=== PATIENT | male | born 1985 | race Caucasian/White ===

== ENCOUNTER 2021-01-31 11:25 | Outpatient (RCR) | payer MEDICAID, SELFPAY | END 2021-03-12 23:59 | LOC: IMMUN 11:25 | PROVIDERS: Referring Provider Family Medicine; Visit Provider Family Medicine | DX: Z23 Encounter for immunization (principal) | CPT/HCPCS: 0001A; 0002A; 91300 ==

== ENCOUNTER 2024-08-21 18:26 | Emergency (ER) | payer OTHER, SELFPAY ==
[2024-08-21 18:27] VITALS: BP 135/99; PULSE 67; RESP 18; TEMP 36.4; O2SAT 96; BMI 23.8
[2024-08-21 18:29] VITALS: BP 135/99; PULSE 67; RESP 18; TEMP 36.4; O2SAT 96
--- NOTE | 2024-08-21 19:00 | CT_ITS ---
INDICATION: right neck swelling EXAMINATION: CT NECK - CT Soft Tissue Neck W/O Contrast Injection TECHNIQUE: Multiple axial images were obtained of the neck. The protocol utilizes one or more of the following dose reduction techniques: automated exposure control, adjustment of mA and/or kV according to patient size,and/or use of iterative reconstruction technique. IV Contrast dosage and agent: None. RADIATION DOSAGE (If Supplied By Facility): CTDIvol = ( 13.12 ) mGy, DLP = ( 435.98 ) mGycm COMPARISON: No relevant prior comparison study available FINDINGS: NASOPHARYNX: Unremarkable. SUPRAHYOID NECK: Mild tonsillar asymmetry with prominence on the right. Associated calcifications. Lack of IV contrast is limiting for this study. Superficial inflammation overlies the right neck in the submandibular region. INFRAHYOID NECK: Unremarkable larynx, hypopharynx, and supraglottis. THYROID: No focal lesions. SALIVARY GLANDS: Unremarkable. LYMPH NODES: Enlarged right submandibular lymph node measures 2.7 cm long axis. Additional enlarged nodes in the right jugular chain. No associated fluid collection seen. VASCULAR STRUCTURES: Unremarkable. VISUALIZED PORTIONS OF THE ORBITS, PARANASAL SINUSES, MASTOID AIR CELLS AND SKULL BASE: Unremarkable. BONES: Unremarkable. THORACIC INLET: Clear lung apices. CT/Soft Tissue Neck without Contr IMPRESSION: Lack of IV contrast is limiting for this study. Cervical lymphadenopathy greatest in the right submandibular region. Associated soft tissue swelling. No definite fluid collection. There is also asymmetry of the tonsils with right-sided prominence. Cannot evaluate for tonsillar abscess. Electronically Signed: Lenin Wright MD at 20:01 EST ,
--- NOTE | 2024-08-21 19:02 | EDS_ITS ---
HPI History of Present Illness Chief Complaint: Edema Informant: patient Narrative Narrative: Patient is a 39-year-old male presenting with atraumatic right jaw and neck swelling. Patient states that started swelling 2 days ago. It became hard for him to open his jaw all the way secondary to pain or move his neck/look to the right which started to worry him. He states initially he was questionably having some mild dental pain but is not sure if that is what led to the swelling. He is currently not having any dental pain. He can alternate ibuprofen and Tylenol with mild relief of his symptoms. Denies any sore throat but does have some pain from his neck when he swallows. Significant other notes that his voice does sound a little raspy compared to normal. No fever or chills reported. No systemic symptoms. No nausea or vomiting. No other complaints or concerns reported at this time. [facility] Medical History ADHD Home Medications ?Medication ?Instructions ?Recorded ?Last Taken ?Type dextroamphetamine-amphetamine 15 15 mg PO TID 30 days #90 tabs 06/13/24 Unknown Rx mg tablet dextroamphetamine-amphetamine 15 15 mg PO TID 30 days #90 tabs 06/13/24 Unknown Rx mg tablet amoxicillin 875 mg-potassium 1 tab PO BID #20 tabs 08/21/24 Unknown Rx clavulanate 125 mg tablet hydrocodone-acetaminophen 5-325mg 1 tab PO Q8H PRN pain 3 days #10 08/21/24 Unknown Rx 5mg-325mg tabs Allergy/AdvReac Type Severity Reaction Status Date / Time No Known Allergies Allergy Verified 08/21/24 18:27 Social History household members: significant other housing: house Smoking Status: Never smoker alcohol intake: never substance use type: does not use what type of physical activity do you participate in: weight training ROS ROS ED Constitutional Constitutional ED: Denies chills or fever(s) Eyes Eyes: Denies blurry vision ENT ENT ED: Reports other Details: right jaw pain/swelling ; Denies ear pain, rhinorrhea or sore throat Cardiovascular Cardiovascular: Denies chest pain Respiratory/Chest Respiratory/Chest: Denies cough or dyspnea Gastrointestinal Gastrointestinal: Denies abdominal pain, nausea or vomiting Musculoskeletal Musculoskeletal: Reports other Details: right sided neck pain and swelling Integumentary Denies rash Neurologic Neurologic: Denies headache(s) EXAM Physical Exam Const Vital Signs: 08/21/24 18:27 08/21/24 18:29 08/21/24 18:41 Temperature 97.5 F L 97.5 F L Temperature Source Temporal Oral Pulse Rate 67 67 Respiratory Rate 18 18 Respiratory Effort Normal Non-Labored Blood Pressure 135/99 H 135/99 H Blood Pressure Mean 111 111 Pulse Ox 96 96 Oxygen Delivery Method Room Air Room Air 08/21/24 20:26 Temperature Temperature Source Pulse Rate 87 Respiratory Rate 15 Respiratory Effort Blood Pressure 138/100 H Blood Pressure Mean 112 Pulse Ox 97 Oxygen Delivery Method Room Air Positive well nourished and well developed General Appearance ED: well developed and NAD HEENT Reports TM's clear and moist mucous membranes HEENT Narrative: Uvula is midline. There does appear to be enlargement/swelling of the right tonsillar pillar. No exudate or erythema of the tonsils appreciated however. Patient has some caries noted but no gingival swelling or abscess appreciated. There is right submandibular swelling and edema appreciated. There is also some swelling noted around the right sternocleidomastoid. No significant lymphadenopathy present. No overlying skin changes present. There is some mild trismus present. Sublingual mucosa is soft. Tympanic Membrane ED: Yes TM's clear Eyes PERRL and EOMs intact bilaterally Neck supple Neck Narrative: Nontender to palpation over the right neck. Some swelling noted of the right sternocleidomastoid cranially. No bruits appreciated. No stridor. Chest Wall inspection of chest normal Resp normal respiratory effort and clear to auscultation bilaterally Cardio regular rate and regular rhythm GI normal to inspection, nondistended, normoactive bowel sounds Extremity normal to inspection Neuro oriented x3 Sensorium / Orientation: alert Motor Exam: Negative for general weakness Psych mental status grossly normal Skin no rashes or lesions noted and no wounds MDM MDM MDM Narrative Medical decision making narrative: Patient presents with right sided neck and submandibular swelling. Suddenly complained of sore throat so lower suspicion for peritonsillar abscess. On exam however he does have some swelling noted of the right tonsillar pillar. He does not report any fever or any other infectious symptoms. Differential includes dental abscess, cervical adenopathy, sialoadenitis, parotitis, submandibular abscess and OMFS mass. Patient given dose of Decadron. Vital signs normal in the emergency room. CT soft tissue neck is obtained which shows cervical enhancement in the greatest in the right side in the region and associated soft tissue swelling with no definite fluid collection. There is also asymmetry of the tonsils with right sided prominence. Cannot rule out tonsillar abscess. Patient will be treated empirically with Augmentin and given ENT outpatient follow-up. Given return precautions. Counseled if symptoms worsen, he develops fever, change in speech or difficulty swallowing he should to return to the emergency room. Given that he will be treated regardless I do not think strep swab is indicated at this time especially as he has been afebrile. Discussed that if his symptoms worsen he should return to the emergency room with repeat CT imaging with IV contrast at that time. While radiology stated they cannot evaluate for tonsillar abscess there is also no report of any fluid collection around the areas of the tonsils consistent with an abscess. Lab Data Attestation: I reviewed the patient's lab results. Radiography Diagnostic Testing: Clinical Impression(s) from Imaging Studies Soft Tissue Neck CT 08/21/24 19:00 IMPRESSION: Lack of IV contrast is limiting for this study. Cervical lymphadenopathy greatest in the right submandibular region. Associated soft tissue swelling. No definite fluid collection. There is also asymmetry of the tonsils with right-sided prominence. Cannot evaluate for tonsillar abscess. Electronically Signed: Lenin Wright MD at 20:01 EST Reading Location ID and State: [address] [place] [address] Tel , Service support , Discharge Plan Triage Chief Complaint: Edema ED Provider: Maile Peck Dx/Rx/DC Orders Clinical Impression: Submandibular swelling Prescriptions: New amoxicillin-pot clavulanate 875-125 mg tablet 1 tab PO BID Qty: 20 0RF hydrocodone-acetaminophen 5-325 mg tablet 1 tab PO Q8H PRN (Reason: pain) 3 Days Qty: 10 0RF No Action dextroamphetamine-amphetamine 15 mg tablet 15 mg PO TID 30 Days Qty: 90 0RF dextroamphetamine-amphetamine 15 mg tablet 15 mg PO TID 30 Days Qty: 90 0RF Stand Alone Forms: ED Work / School Excuse Primary Care Provider: Keyur Zarate Referrals: Davonte Chairez MD [Med Staff - Active Staff] - 3-5 Days if not improving Keyur Zarate MD [Primary Care Provider] - Activity Restrictions/Additional Instructions: Vital signs are largely normal today without signs of infection. CT did not have IV contrast but showed Cervical lymphadenopathy greatest in the right submandibular region. Associated soft tissue swelling. No definite fluid collection. There is also asymmetry of the tonsils with right-sided prominence. We will put you on antibiotics that we will treat for a tonsillar infection as well as any type of dental or deep space infection. You are also given a dose of Decadron (steroids) in the emergency room to help with the swelling and pain. Please continue to take ibuprofen 600 mg every 6 hours to help with pain and swelling. Is also possible this is viral in nature but given that is one-sided will treat more as a bacterial infection. If you start drooling, having difficulty time swallowing or significant change in speech as we discussed please return immediately to the emergency room. Print Language: Citizen Of [place] Disposition Disposition: Home, Self Care
[2024-08-21] MEDS: dexAMETHasone 10 MG/ML Vial PO.IVFORM (19:09)
[2024-08-21 20:26] VITALS: BP 138/100; PULSE 87; RESP 15; O2SAT 97
[2024-08-21] MEDS: HYDROcodone Bitartrate/Apap 5/325 Tablet PO (21:59)
[2024-08-21] MEDS: Amox/Clavulanate 875 MG Tablet PO (21:59)
[2024-08-21 22:14] VITALS: BP 138/94; PULSE 81; RESP 17; TEMP 36.7; O2SAT 97
== END 2024-08-21 22:15 | disposition home or self-care (01) ==
PROVIDERS: Emergency Provider Emergency Medicine; PCP Family Medicine; Visit Provider Emergency Medicine
DX: R22.1 Localized swelling, mass and lump, neck (principal)
CPT/HCPCS: 70490; 99284

== ENCOUNTER 2024-08-23 19:56 | Emergency (ER) | payer OTHER, SELFPAY ==
[2024-08-23 19:57] VITALS: BP 144/99; PULSE 92; RESP 16; TEMP 36.9; O2SAT 100; BMI 24.5
[2024-08-23 21:56] VITALS: BP 140/95; PULSE 76; RESP 18; O2SAT 100
--- NOTE | 2024-08-23 22:25 | CT_ITS ---
We are attempting to reach an attending provider to discuss findings. An addendum with communication details will be sent when the communication is complete. EXAM: CT NECK WITH INTRAVENOUS CONTRAST CLINICAL INDICATION: swelling on right side TECHNIQUE: Helically acquired images were obtained of the neck with intravenous contrast. This CT exam was performed using one or more of the following dose reduction techniques: automated exposure control, adjustment of the mA and/or kV according to patient size, and/or use of iterative reconstruction technique. CONTRAST: IV 75mL [id number]-370 RADIATION DOSE: CTDIvol = 10.97 mGy, DLP = 304.25 mGy-cm. COMPARISON: No relevant prior studies available. FINDINGS: NASOPHARYNX: Unremarkable. SUPRAHYOID NECK: Mild fullness of the right peritonsillar region without a discrete drainable abscess, possibly phlegmon. INFRAHYOID NECK: Normal epiglottis. SUBMANDIBULAR/PAROTID GLANDS: Submandibular fascial thickening. Glands are normal in size. THYROID: Unremarkable. No enlarged or calcified nodules. SINUSES: Well-aerated paranasal sinuses, middle ears and mastoids sinuses. Patent external auditory canals. DENTAL: There is advanced periodontal disease. Including in the right mandible, also in the left mandible and maxilla, greater on the left. There are 2 residual left second molar roots surrounded by lucency with large dental caries and almost complete destruction of the tooth crown with periapical lucency of roughly 1.5 cm AP surrounding the residual roots. Smaller dental caries in the right first mandible molar. Multiple large dental caries and periapical lucencies in the left mandible, especially involving the first molar in the mandible, and also involving second molar in the left maxilla with small residual roots. Patent jugular and carotid vessels. BONES/JOINTS: Prominent posterior osteophyte-disc complex protruding about 4 mm posteriorly at C3-4 with at least mild apparent frantz spinal stenosis, suspicion of mild cord impingement, AP diameter of the canal is estimated to be 7 mm at C3-4. There appears to be diffuse narrow spinal canal. No acute fracture. SOFT TISSUES: There is soft tissue swelling superficial and deep to the right mandible, encasing the right lateral mandible without a visible discrete drainable soft tissue abscess. Soft tissue stranding in the superficial and deep subcutaneous fat in the submandibular regions, bilateral but greater on the right. VASCULATURE: No acute findings. LYMPH NODES: There is bilateral submandibular adenopathy, greater on the right. At least 4 prominent right submandibular lymph nodes, 3 with enhancement, the largest roughly 2.2 cm x 1.4 cm with some slight curvilinear suspected internal necrosis. Enlarged right jugulodigastric and upper cervical nodes without necrosis. LUNG APICES: Unremarkable as visualized. OTHER FINDINGS: No airway narrowing. CT/Soft Tissue Neck WITH Contrast IMPRESSION: 1. Right perimandibular phlegmon- like swelling and soft tissue thickening. 2. Advanced periodontal disease and prominent periapical lucency around 2 adjacent second residual molar tooth roots in the right mandible. 3. No discrete drainable soft tissue abscess. 4. Right greater than left submandibular lymphadenopathy, fascial thickening and superficial and deep subcutaneous edema. Presumed Brett''s angina secondary to advanced periodontal disease. There is also some right deep parapharyngeal space soft tissue stranding and edema. 5. Mild fullness of the right peritonsillar tissues without discrete drainable abscess. No retropharyngeal abscess. 6. Superficial vein in the right superficial subcutaneous neck is not completely enhanced, this appears to drain the deep face. Possibly a long segment of superficial thrombophlebitis secondary to the inflammation involving the perimandibular region. There is a long segment of incomplete-appearing minimal opacification and suspected venous filling defect just deep to the skin. The corresponding superficial vein on the left is not yet opacified. Electronically Signed: Svetlana Leija MD at 0:29 EST ,
[2024-08-23 22:43] LABS: Absolute Lymphocyte Count 2.29 X10^3/uL (0.83-4.51); Absolute Neutrophil Count 6.8 X10^3/uL (2.0-7.7); Basophil# 0.06 X10^3/uL; Basophil% 0.6 % (0-1); Eosinophil# 0.07 X10^3/uL; Eosinophils% 0.7 % (0-5); Hematocrit 43.6 % (40-54); Hemoglobin 14.7 g/dL (13.0-16.5); Lymphocyte # 2.29 X10^3/ul (0.83-4.51); Lymphocyte % 22.4 % (19-41); Mean Corp Hgb Conc 33.7 g/dL (32-36); Mean Corpuscular Hgb 28.5 pg (27.0-32.0); Mean Corpuscular Volume 84.7 fL (80-94); Mean Platelet Vol. 11.4 fl (6.2-12.0); Monocyte# 0.96 X10^3/uL; Monocyte% 9.4 % (0-10); NRBC Flagged by Analyzer 0 % (0-5); Neutrophil # 6.81 X10^3/uL (2.7-7.7); Neutrophil % 66.4 % (47-70); Platelet Count 201 K/mm3 (150-450); RBC Distribution Width CV 12.5 % (11.6-14.6); RBC Distribution Width SD 38.4 fl (35.1-43.9); Red Blood Count 5.15 M/mm3 (4.6-6.2); White Blood Count 10.2 K/mm3 (4.4-11.0)
[2024-08-23 23:00] VITALS: BP 140/89; PULSE 78; RESP 18; O2SAT 99
[2024-08-23 23:09] LABS: Anion Gap 4 (5-15); BUN 23 mg/dL (7-18); BUN/Creat Ratio 23.9 RATIO (10-20); Chloride 105 mmol/L (98-107); Creatinine, Serum 0.96 mg/dL (0.70-1.30); EST Glomerular Filtration Rate 93 mL/min (>60); Est Glom Filt Rate - Afr Amer 113 mL/min (>60); Estimated Creatinine Clearance 101.93 ml/min; Glucose 102 mg/dL (74-106); Potassium 3.9 mmol/L (3.5-5.1); Sodium Level 139 mmol/L (136-145)
[2024-08-24] VITALS: BP 128/88; O2SAT 99
--- NOTE | 2024-08-24 00:02 | EX.ED.DYSGE1 ---
HPI History of Present Illness Chief Complaint: Other, Pain/Inj Narrative Narrative: Patient is a 39-year-old male with past medical history ADHD who presents to the emergency department chief complaint of right neck swelling. Patient states that he was here recently and evaluated and was ultimately placed on antibiotics and was sent home and was advised to return with worsening symptoms or any other concerns. Patient states that he noted that he has had increased swelling since Thursday which ultimately prompted him to come back further evaluation management. He states that he has been taking antibiotics as prescribed. Patient states that he has been able to eat and drink tolerate oral intake without any difficulty. [facility] Medical History ADHD Home Medications ?Medication ?Instructions ?Recorded ?Last Taken ?Type dextroamphetamine-amphetamine 15 15 mg PO TID 30 days #90 tabs 06/13/24 Unknown Rx mg tablet dextroamphetamine-amphetamine 15 15 mg PO TID 30 days #90 tabs 06/13/24 Unknown Rx mg tablet amoxicillin 875 mg-potassium 1 tab PO BID #20 tabs 08/21/24 Unknown Rx clavulanate 125 mg tablet hydrocodone-acetaminophen 5-325mg 1 tab PO Q8H PRN pain 3 days #10 08/21/24 Unknown Rx 5mg-325mg tabs Allergy/AdvReac Type Severity Reaction Status Date / Time No Known Allergies Allergy Verified 08/23/24 19:56 Social History household members: significant other housing: house Smoking Status: Never smoker alcohol intake: never substance use type: does not use what type of physical activity do you participate in: weight training ROS ROS ED ROS Narrative Constitutional: Denies fevers, chills, headaches, lightness, dizziness Eyes ears, nose, throat: Denies change in vision double vision blurry vision, denies difficulty swallowing Neck: Complains of right-sided neck swelling as noted above Cardiovascular: Denies chest pain or palpitations Respiratory: Denies shortness of breath Abdomen: Denies nausea vomit diarrhea Neurological: Denies numbness, weakness, tingling EXAM Physical Exam Narrative Exam Narrative: General: Patient lying in bed rest comfortably did not appear to be acute distress playing on his phone Head: Atraumatic, normocephalic Eyes ears, nose, throat: PERRL bilaterally, EOMI bladder, no conjunctival injection noted, no submandibular swelling noted on exam. No concern for mastoiditis Neck: Soft, supple, trachea midline, patient does have some right sided swelling noted no concern for Brett's angina Cardiovascular: Regular rate and rhythm Respiratory: Clear to auscultation bilaterally Neurological: Patient following commands knew that he was at [facility] years 2023 Skin: Warm, dry, intact no rashes or lesions noted Const Vital Signs: 08/23/24 19:57 08/23/24 21:32 08/23/24 21:56 Temperature 98.5 F Temperature Source Oral Pulse Rate 92 76 Respiratory Rate 16 18 Respiratory Pattern Normal Blood Pressure 144/99 H 140/95 H Blood Pressure Mean 114 110 Pulse Ox 100 100 Oxygen Delivery Method Room Air Room Air 08/23/24 23:00 Temperature Temperature Source Pulse Rate 78 Respiratory Rate 18 Respiratory Pattern Blood Pressure 140/89 H Blood Pressure Mean 106 Pulse Ox 99 Oxygen Delivery Method Room Air MDM MDM MDM Narrative Medical decision making narrative: Patient is a 39-year-old male who presents to the emergency department the chief complaint of right-sided neck swelling. Patient will have a workup performed here on the differential diagnose includes but not limited to peritonsillar abscess, retropharyngeal abscess, sialoadenitis, parotitis. Once workup is obtained reviewed he will be reevaluated. Patient CBC reviewed and was largely unremarkable no evidence leukocytosis white blood count normal at 10.2, hemoglobin stable 14.7, platelet count normal at 201. Patient's sodium normal at 139, potassium normal 3.9, creatinine normal at 0.96. Patient's glucose normal at 102. Patient CT neck is still pending this was signed out to oncoming provider to follow-up on see their note for ultimate details and disposition. Lab Data Labs: Laboratory Results - last 24 hr 08/23/24 22:23 WBC 10.2 RBC 5.15 Hgb 14.7 Hct 43.6 MCV 84.7 MCH 28.5 MCHC 33.7 RDW Std Deviation 38.4 RDW Coeff of Meri 12.5 Plt Count 201 MPV 11.4 Immature Gran % (Auto) 0.500 Neut % (Auto) 66.4 Lymph % (Auto) 22.4 [place] % (Auto) 9.4 Eos % (Auto) 0.7 Baso % (Auto) 0.6 Absolute Neuts (auto) 6.8 Absolute Lymphs (auto) 2.29 Nucleated RBC % 0 Sodium 139 Potassium 3.9 Chloride 105 Carbon Dioxide 29.0 Anion Gap 4 L BUN 23 H Creatinine 0.96 Estim Creat Clear Calc 101.93 Est GFR (MDRD) Af Amer 113 Est GFR (MDRD) Non-Af 93 BUN/Creatinine Ratio 23.9 H Glucose 102 Calcium 9.0 Discharge Plan Triage Chief Complaint: Other, Pain/Inj ED Provider: Irvin Dunne Dx/Rx/DC Orders Prescriptions: No Action dextroamphetamine-amphetamine 15 mg tablet 15 mg PO TID 30 Days Qty: 90 0RF dextroamphetamine-amphetamine 15 mg tablet 15 mg PO TID 30 Days Qty: 90 0RF amoxicillin-pot clavulanate 875-125 mg tablet 1 tab PO BID Qty: 20 0RF hydrocodone-acetaminophen 5-325 mg tablet 1 tab PO Q8H PRN (Reason: pain) 3 Days Qty: 10 0RF Primary Care Provider: Keyur Zarate Referrals: Keyur Zarate MD [Primary Care Provider] - Print Language: [place]ese
[2024-08-24 01:00] VITALS: O2SAT 100
[2024-08-24] MEDS: Ondansetron 4 MG/2 ML Vial IV (01:11)
[2024-08-24] MEDS: Morphine 4 MG/ML Syringe IV (01:11)
[2024-08-24] MEDS: Piperacil/Tazobactam 3.375 GM in 0.9% Normal Saline (50mL MB+) 50 ML IV (01:11)
[2024-08-24 01:30] VITALS: BP 128/88; PULSE 81; RESP 16; TEMP 36.9; O2SAT 98
[2024-08-24 01:34] VITALS: BP 128/88; PULSE 74; RESP 16; TEMP 36.8; O2SAT 100
[2024-08-24] MEDS: Clindamycin 900 MG/50 ML BAG 75 MG IV (02:13)
[2024-08-24 02:34] VITALS: BP 122/77; PULSE 59; RESP 18; TEMP 36.8; O2SAT 98
[2024-08-24 03:00] VITALS: BP 127/95; PULSE 79; RESP 18; TEMP 36.9; O2SAT 100
== END 2024-08-24 03:24 | disposition home or self-care (01) ==
PROVIDERS: Emergency Provider Emergency Medicine; PCP Family Medicine; Visit Provider Emergency Medicine
DX: R59.0 Localized enlarged lymph nodes (principal); F90.9 Attention-deficit hyperactivity disorder, unspecified type; K05.5 Other periodontal diseases; R60.9 Edema, unspecified
CPT/HCPCS: 70491; 80048; 85025; 96365; 96367; 96375; 99282; Q9967; A4216; J2405